=== PATIENT | male | born 1975 | race African-American/Black ===

== ENCOUNTER 2022-12-09 05:10 | Inpatient (IN) | payer MEDICAID ==
[2022-12-09] VITALS (24 sets, daily range): BP systolic 103–116; BP diastolic 62–76
[~2022-12-09] VITALS: Ht 170.2 cm; Wt 67.6 kg
[2022-12-09] MEDS ORDERED: PIPERACILLIN/TAZ 3.375G PREMIX 50 ML IV ONE (05:30)
[2022-12-09] MEDS ORDERED: SODIUM CHLORIDE 0.9% 1,000 ML IV ONE (05:30)
[2022-12-09] MEDS ORDERED: MIDAZOLAM HCL 2 MG/2 ML VIAL IV ONE (05:45)
[2022-12-09] MEDS ORDERED: MIDAZOLAM HCL 100 MG in DEXT 5% WATER 80 ML IV ONE (05:45)
[2022-12-09] MEDS ORDERED: VECURONIUM BROMIDE 10 MG/VIAL IV ONE ×2 (05:45→07:42)
[2022-12-09 06:08] LABS: BASOPHILS % 0.5 % (0.0-2.0); HEMATOCRIT. 46.6 % (42.0-52.0); HEMOGLOBIN. 15.2 g/dL (14.0-18.0); LYMPHOCYTES % 25.1 % (20.0-50.0); MEAN CORPUSCULAR HEMOGLOBIN 29.9 pg (28.0-32.0); MEAN CORPUSCULAR VOLUME 92.1 fL (80.0-94.0); MEAN PLATELET VOLUME 8.4 fl (7.4-10.4); MONOCYTES % 1.7 % (2.0-8.0); NEUTROPHILS % 71.7 % (40.0-76.0); PLATELET 303 x1000/uL (130-400); RED BLOOD CELL COUNT 5.07 mill/uL (4.7-6.1); RED CELL DISTRIBUTION WIDTH 13.6 % (11.6-14.6)
[2022-12-09 06:27] LABS: CHLORIDE 103 mEq/L (98-107)
[2022-12-09] MEDS ORDERED: MIDAZOLAM HCL 100 MG in DEXT 5% WATER 80 ML IV NR (06:30)
[2022-12-09 06:40] LABS: ETHANOL BLOOD < 10 mg/dL
[2022-12-09] MEDS ORDERED: DILTIAZEM HCL 125 MG in DEXT 5% WATER 100 ML IV ONE ×2 (06:45→07:00)
[2022-12-09] MEDS ORDERED: DILTIAZEM HCL 5MG/ML 5ML VIAL IV ONE (06:45)
[2022-12-09] MEDS ORDERED: CLINDAMYCIN 600 MG in DEXTROSE 5% WATER 50 ML IV ONE (06:45)
[2022-12-09] MEDS ORDERED: SODIUM CHLORIDE 0.9% 1000ML BAG (SEPSIS BOLUS) IV ONE (06:45)
[2022-12-09 06:46] LABS: BG BASE EXCESS -8.7 mmol/L (-2.0-2.0); BG CARBOXYHEMOGLOBIN 4.8 % (0.5-1.5); BG DEOXYHEMOGLOBIN 9.3 % (0.0-5.0); BG FRACTION INSPIRED OXYGEN 100; BG HCO3 ACT 22.6 mmol/L (22.0-26.0); BG METHEMOGLOBIN 0.3 % (0.0-1.5); BG OXYGEN SATURATION 90.2 % (92.0-98.5); BG OXYHEMOGLOBIN 85.6 % (94.0-97.0); BG PCO2 72.3 mmHg (35.0-45.0); BG PH 7.112 (7.350-7.450); BG PO2 71.7 mmHg (75.0-100.0); BG SAMPLE SITE RIGHT RADIAL; BG TOTAL HEMOGLOBIN 17.1 g/dL (12.0-18.0); BG VENT MODE VENT - AC
[2022-12-09 06:46] LABS: CREATINE KINASE 592 IU/L (39-308)
[2022-12-09] MEDS ORDERED: CLINDAMYCIN 600MG PREMIX 50 ML IV SCH (07:00)
[2022-12-09 07:09] LABS: CLARITY URINE CLEAR (CLEAR); COLOR URINE YELLOW (YELLOW); KETONES URINE NEGATIVE (NEGATIVE); LEUKOCYTE ESTERASE URINE NEGATIVE (NEGATIVE); NITRITE URINE NEGATIVE (NEGATIVE); OCCULT BLOOD URINE 2+ (NEGATIVE); PROTEIN URINE 3+ (NEGATIVE); SPECIFIC GRAVITY URINE 1.019 (1.005-1.030); UROBILINOGEN URINE 0.2 E.U./dL (0.2-1.0)
[2022-12-09] MEDS ORDERED: ETOMIDATE 2MG/ML 10ML VIAL IV ONE ×2 (07:30→07:42)
[2022-12-09] MEDS ORDERED: SUCCINYLCHOLINE CHLORIDE 200MG/10ML IV ONE ×2 (07:30→07:42)
[2022-12-09] MEDS ORDERED: SODIUM CHLORIDE 0.9% 10ML VIAL ONE (07:42)
[2022-12-09] MEDS ORDERED: LIDOCAINE HCL 1% 30ML VIAL (10MG/ML) ONE (07:50)
[2022-12-09 08:17] LABS: *AMPHETAMINES SCREEN URINE PRESUMTIVE POSITIVE (NEGATIVE); *BARBITURATES SCREEN URINE NEGATIVE (NEGATIVE); *BENZODIAZEPINES SCREEN URINE NEGATIVE (NEGATIVE); *COCAINE SCREEN URINE NEGATIVE (NEGATIVE); CANNABINOID URINE SCREEN PRESUMTIVE POSITIVE (NEGATIVE); METHADONE URINE SCREEN NEGATIVE (NEGATIVE); OPIATES URINE SCREEN NEGATIVE (NEGATIVE); PHENCYCLIDINE URINE SCREEN NEGATIVE (NEGATIVE)
[2022-12-09] MEDS ORDERED: DEXTROSE 50% WATER 50ML SYRINGE IV PRN (08:30)
[2022-12-09] MEDS ORDERED: ALBUTEROL (0.083%) 2.5MG/3ML NEB HHN PRN (08:30)
[2022-12-09 08:52] LABS: BG BASE EXCESS -7.8 mmol/L (-2.0-2.0); BG CARBOXYHEMOGLOBIN 2.4 % (0.5-1.5); BG DEOXYHEMOGLOBIN 5.9 % (0.0-5.0); BG FRACTION INSPIRED OXYGEN 100; BG HCO3 ACT 20.7 mmol/L (22.0-26.0); BG METHEMOGLOBIN 0.3 % (0.0-1.5); BG OXYGEN SATURATION 93.9 % (92.0-98.5); BG OXYHEMOGLOBIN 91.4 % (94.0-97.0); BG PCO2 53.5 mmHg (35.0-45.0); BG PH 7.206 (7.350-7.450); BG PO2 79.4 mmHg (75.0-100.0); BG SAMPLE SITE RIGHT BRACHIAL; BG TOTAL HEMOGLOBIN 16.1 g/dL (12.0-18.0); BG TOTAL RESPIRATORY RATE 24 b/min; BG VENT MODE VENT - AC
[2022-12-09] MEDS ORDERED: FAMOTIDINE 20MG/2ML VIAL IV SCH ×2 (09:00→10:00)
[2022-12-09] MEDS ORDERED: MAGNESIUM/ALUMINUM HYDROXIDE/SIMETHICONE 30ML UDC PO PRN (09:15)
[2022-12-09] MEDS ORDERED: KETOROLAC 15MG/ML VIAL IV PRN (09:15)
[2022-12-09] MEDS ORDERED: CLONIDINE 0.1MG TABLET PO PRN (09:15)
[2022-12-09] MEDS ORDERED: ONDANSETRON HCL 4MG/2ML INJ IV PRN (09:15)
[2022-12-09] MEDS ORDERED: NA PHOS,M-B/NA PHOS,DI-BA ENEMA 118ML PR PRN (09:15)
[2022-12-09] MEDS ORDERED: DOCUSATE SODIUM 100MG CAPSULE PO PRN (09:15)
[2022-12-09] MEDS ORDERED: VANCOMYCIN 1G PREMIX 200 ML IV SCH (09:30)
[2022-12-09] MEDS ORDERED: AMIODARONE HCL 150 MG in DEXT 5% WATER 100 ML IV SCH (09:30)
[2022-12-09] MEDS ORDERED: AMIODARONE HCL 900 MG in DEXT 5% WATER 482 ML IV SCH (09:30)
[2022-12-09 09:43] LABS: INR 1.1; PROTHROMBIN TIME 11.4 sec (9.6-11.0)
[2022-12-09] MEDS ORDERED: SODIUM CHLORIDE 0.9% 1,000 ML IV SCH ×2 (09:45→10:00)
[2022-12-09] MEDS ORDERED: ENOXAPARIN 40MG/0.4ML SYR SUBCUT SCH (10:00)
[2022-12-09] MEDS ORDERED: DOXYCYCLINE 100 MG in DEXT 5% WATER 100 ML IV SCH (10:00)
[2022-12-09] MEDS ORDERED: DEXT 5%/LACTATED RINGERS 1,000 ML IV SCH (10:00)
[2022-12-09] MEDS ORDERED: CEFTRIAXONE 1 G PREMIX 50 ML IV SCH (10:00)
[2022-12-09] MEDS: ENOXAPARIN 40MG/0.4ML SYR SUBCUT SCH (10:29)
[2022-12-09] MEDS: PANTOPRAZOLE SODIUM 40 MG/VIAL IV SCH (10:29)
[2022-12-09] MEDS: BLOOD SUGAR DIAGNOSTIC STRIP TEST SCH ×3 (10:29→17:13)
[2022-12-09] MEDS ORDERED: MIDAZOLAM HCL 100 MG in SODIUM CHLORIDE 0.9% 80 ML IV PRN (10:30)
[2022-12-09] MEDS ORDERED: INSULIN LISPRO 100 UNITS/ML SUBCUT SCH (12:00)
[2022-12-09 13:01] LABS: T4 FREE 0.94 ng/dL (0.76-1.46)
[2022-12-09 13:13] LABS: VITAMIN B12 SERUM 398 pg/mL (211-911)
[2022-12-09] MEDS ORDERED: PIPERACILLIN/TAZ 3.375G PREMIX 50 ML IV SCH (14:00)
[2022-12-09] MEDS ORDERED: MAGNESIUM 2 G PREMIX 50 ML IV NR (17:00)
[2022-12-09] MEDS: PIPERACILLIN/TAZOBACTAM 3.375 G in DEXTROSE 5% WATER 50 ML IV SCH ×2 (17:08→22:47)
[2022-12-09] MEDS: INSULIN LISPRO 100 UNITS/ML SUBCUT SCH (17:13)
[2022-12-09] MEDS: DEXT 5%/0.9% NACL 1,000 ML IV SCH (17:29)
[2022-12-09] MEDS ORDERED: VANCOMYCIN 1.25GM PMX (XELLIA) 250 ML IV SCH (20:00)
[2022-12-09] MEDS: VANCOMYCIN 1.25GM PMX (XELLIA) 250 ML IV SCH (20:56)
[2022-12-10] VITALS (35 sets, daily range): BP systolic 112–143; BP diastolic 72–97
[2022-12-10] MEDS: BLOOD SUGAR DIAGNOSTIC STRIP TEST SCH ×4 (00:34→17:54)
[2022-12-10] MEDS: DEXT 5%/0.9% NACL 1,000 ML IV SCH ×3 (04:21→17:54)
[2022-12-10] MEDS: INSULIN LISPRO 100 UNITS/ML SUBCUT SCH ×4 (06:00→17:54)
[2022-12-10 06:21] LABS: BASOPHILS % 0.2 % (0.0-2.0); EOSINOPHILS % 0.2 % (0.0-5.0); HEMATOCRIT. 39.8 % (42.0-52.0); HEMOGLOBIN. 13.6 g/dL (14.0-18.0); LYMPHOCYTES % 11.4 % (20.0-50.0); MEAN CORPUSCULAR HEMOGLOBIN 30.8 pg (28.0-32.0); MEAN CORPUSCULAR VOLUME 90.1 fL (80.0-94.0); MEAN PLATELET VOLUME 8.9 fl (7.4-10.4); MONOCYTES % 5.4 % (2.0-8.0); NEUTROPHILS % 82.8 % (40.0-76.0); PLATELET 181 x1000/uL (130-400); RED BLOOD CELL COUNT 4.42 mill/uL (4.7-6.1); RED CELL DISTRIBUTION WIDTH 13.4 % (11.6-14.6)
[2022-12-10] MEDS: PIPERACILLIN/TAZOBACTAM 3.375 G in DEXTROSE 5% WATER 50 ML IV SCH ×3 (06:22→22:20)
[2022-12-10 06:26] LABS: CHLORIDE 107 mEq/L (98-107)
[2022-12-10 06:35] LABS: PHOSPHORUS 2.3 mg/dL (2.5-4.9)
[2022-12-10] MEDS: ENOXAPARIN 40MG/0.4ML SYR SUBCUT SCH (08:42)
[2022-12-10] MEDS: ASPIRIN 81MG TABLET PO SCH (08:42)
[2022-12-10] MEDS: PANTOPRAZOLE SODIUM 40 MG/VIAL IV SCH (08:42)
[2022-12-10] MEDS: VANCOMYCIN 1.25GM PMX (XELLIA) 250 ML IV SCH ×2 (08:43→19:59)
[2022-12-10 09:02] LABS: BG BASE EXCESS -1.6 mmol/L (-2.0-2.0); BG CARBOXYHEMOGLOBIN 0.3 % (0.5-1.5); BG DEOXYHEMOGLOBIN 0.9 % (0.0-5.0); BG FRACTION INSPIRED OXYGEN 80; BG HCO3 ACT 23.7 mmol/L (22.0-26.0); BG METHEMOGLOBIN 0.3 % (0.0-1.5); BG OXYGEN SATURATION 99.1 % (92.0-98.5); BG OXYHEMOGLOBIN 98.5 % (94.0-97.0); BG PH 7.369 (7.350-7.450); BG PO2 222.2 mmHg (75.0-100.0); BG SAMPLE SITE RIGHT RADIAL; BG TOTAL HEMOGLOBIN 13.8 g/dL (12.0-18.0); BG VENT MODE VENT - AC
[2022-12-10 11:52] LABS: BG BASE EXCESS -3.8 mmol/L (-2.0-2.0); BG CARBOXYHEMOGLOBIN 0.6 % (0.5-1.5); BG DEOXYHEMOGLOBIN 5.9 % (0.0-5.0); BG FRACTION INSPIRED OXYGEN 40; BG HCO3 ACT 22.2 mmol/L (22.0-26.0); BG METHEMOGLOBIN 0.3 % (0.0-1.5); BG OXYHEMOGLOBIN 93.2 % (94.0-97.0); BG PCO2 43.8 mmHg (35.0-45.0); BG PH 7.323 (7.350-7.450); BG PO2 70.6 mmHg (75.0-100.0); BG SAMPLE SITE RIGHT BRACHIAL; BG VENT MODE VENT - CPAP
[2022-12-10] MEDS ORDERED: HALOPERIDOL LACTATE 5MG/ML VIAL IM NR (14:45)
[2022-12-10] MEDS ORDERED: HALOPERIDOL LACTATE 5MG/ML VIAL IM PRN (17:15)
[2022-12-10 17:21] LABS: BG BASE EXCESS 1.3 mmol/L (-2.0-2.0); BG CARBOXYHEMOGLOBIN 0.3 % (0.5-1.5); BG DEOXYHEMOGLOBIN 4.5 % (0.0-5.0); BG FRACTION INSPIRED OXYGEN 40; BG HCO3 ACT 25.9 mmol/L (22.0-26.0); BG METHEMOGLOBIN 0.3 % (0.0-1.5); BG OXYGEN SATURATION 95.5 % (92.0-98.5); BG OXYHEMOGLOBIN 94.9 % (94.0-97.0); BG PCO2 41.1 mmHg (35.0-45.0); BG PH 7.418 (7.350-7.450); BG PO2 73.9 mmHg (75.0-100.0); BG SAMPLE SITE RIGHT RADIAL; BG TOTAL HEMOGLOBIN 14.3 g/dL (12.0-18.0); BG VENT MODE NASAL CANNULA
[2022-12-11] VITALS (28 sets, daily range): BP systolic 97–142; BP diastolic 45–97
[2022-12-11] MEDS ORDERED: ACETAMINOPHEN 325MG TABLET PO PRN ×2 (00:30→01:00)
[2022-12-11] MEDS: KETOROLAC 15MG/ML VIAL IV PRN ×2 (03:59→20:50)
[2022-12-11] MEDS: DEXT 5%/0.9% NACL 1,000 ML IV SCH ×2 (04:04→19:30)
[2022-12-11] MEDS: BLOOD SUGAR DIAGNOSTIC STRIP TEST SCH ×5 (05:34→22:04)
[2022-12-11] MEDS: PIPERACILLIN/TAZOBACTAM 3.375 G in DEXTROSE 5% WATER 50 ML IV SCH ×3 (05:39→22:00)
[2022-12-11] MEDS: INSULIN LISPRO 100 UNITS/ML SUBCUT SCH ×5 (05:41→22:04)
[2022-12-11] MEDS: GUAIFENESIN 200MG/10ML SUGAR FREE UDC PO PRN (06:06)
[2022-12-11 06:26] LABS: CHLORIDE 110 mEq/L (98-107)
[2022-12-11 07:45] LABS: BG BASE EXCESS -1.3 mmol/L (-2.0-2.0); BG CARBOXYHEMOGLOBIN 0.7 % (0.5-1.5); BG DEOXYHEMOGLOBIN 4.4 % (0.0-5.0); BG FRACTION INSPIRED OXYGEN 32; BG METHEMOGLOBIN 0.2 % (0.0-1.5); BG OXYGEN SATURATION 95.6 % (92.0-98.5); BG OXYHEMOGLOBIN 94.7 % (94.0-97.0); BG PCO2 37.3 mmHg (35.0-45.0); BG PH 7.407 (7.350-7.450); BG PO2 73.2 mmHg (75.0-100.0); BG SAMPLE SITE RIGHT BRACHIAL; BG TOTAL HEMOGLOBIN 13.5 g/dL (12.0-18.0); BG VENT MODE NASAL CANNULA
[2022-12-11] MEDS: PANTOPRAZOLE SODIUM 40 MG/VIAL IV SCH (08:22)
[2022-12-11] MEDS: ENOXAPARIN 40MG/0.4ML SYR SUBCUT SCH (08:22)
[2022-12-11] MEDS: ASPIRIN 81MG TABLET PO SCH (08:22)
[2022-12-11] MEDS: VANCOMYCIN 1.25GM PMX (XELLIA) 250 ML IV SCH (08:23)
[2022-12-11 09:06] LABS: BASOPHILS % 0.2 % (0.0-2.0); EOSINOPHILS % 0.5 % (0.0-5.0); HEMATOCRIT. 39.8 % (42.0-52.0); HEMOGLOBIN. 13.3 g/dL (14.0-18.0); MEAN CORPUSCULAR HEMOGLOBIN 30.3 pg (28.0-32.0); MEAN CORPUSCULAR VOLUME 90.6 fL (80.0-94.0); MEAN PLATELET VOLUME 9.5 fl (7.4-10.4); MONOCYTES % 6.9 % (2.0-8.0); NEUTROPHILS % 82.4 % (40.0-76.0); PLATELET 177 x1000/uL (130-400); RED BLOOD CELL COUNT 4.39 mill/uL (4.7-6.1); RED CELL DISTRIBUTION WIDTH 13.4 % (11.6-14.6)
[2022-12-11] MEDS: VANCOMYCIN 1G PREMIX 200 ML IV SCH ×2 (16:32→21:22)
[2022-12-12] VITALS: BP 138/62
[2022-12-12 04:00] VITALS: BP 134/72
[2022-12-12] MEDS: VANCOMYCIN 1G PREMIX 200 ML IV SCH ×3 (05:22→22:00)
[2022-12-12] MEDS: DEXT 5%/0.9% NACL 1,000 ML IV SCH ×2 (05:29→15:54)
[2022-12-12] MEDS: INSULIN LISPRO 100 UNITS/ML SUBCUT SCH ×3 (06:00→18:00)
[2022-12-12] MEDS: BLOOD SUGAR DIAGNOSTIC STRIP TEST SCH ×3 (06:00→18:00)
[2022-12-12 08:00] VITALS: BP 111/62
[2022-12-12] MEDS: ASPIRIN 81MG TABLET PO SCH (08:46)
[2022-12-12] MEDS: PIPERACILLIN/TAZOBACTAM 3.375 G in DEXTROSE 5% WATER 50 ML IV SCH ×3 (08:46→23:00)
[2022-12-12] MEDS: PANTOPRAZOLE SODIUM 40 MG/VIAL IV SCH (08:46)
[2022-12-12] MEDS: ENOXAPARIN 40MG/0.4ML SYR SUBCUT SCH (08:47)
[2022-12-12] MEDS: KETOROLAC 15MG/ML VIAL IV PRN (09:04)
[2022-12-12] MEDS: GUAIFENESIN 200MG/10ML SUGAR FREE UDC PO PRN (09:04)
[2022-12-12 11:57] LABS: CHLORIDE 109 mEq/L (98-107)
[2022-12-12 12:00] VITALS: BP 101/56
[2022-12-12 16:00] VITALS: BP 112/62
[2022-12-13] MEDS ORDERED: MELATONIN 3MG TABLET PO PRN (00:30)
[2022-12-13] MEDS ORDERED: KETOROLAC 15MG/ML VIAL IV PRN (00:30)
[2022-12-13] MEDS: INSULIN LISPRO 100 UNITS/ML SUBCUT SCH ×2 (00:58→05:30)
[2022-12-13] MEDS: BLOOD SUGAR DIAGNOSTIC STRIP TEST SCH ×2 (00:59→05:29)
[2022-12-13] MEDS: DEXT 5%/0.9% NACL 1,000 ML IV SCH (01:03)
[2022-12-13 04:00] VITALS: BP 126/79
[2022-12-13] MEDS: VANCOMYCIN 1G PREMIX 200 ML IV SCH (04:03)
[2022-12-13] MEDS: PIPERACILLIN/TAZOBACTAM 3.375 G in DEXTROSE 5% WATER 50 ML IV SCH (05:29)
[2022-12-13 08:00] VITALS: BP 125/83
[2022-12-13] MEDS ORDERED: FAMOTIDINE 20MG/2ML VIAL IV SCH (09:00)
[2022-12-13] MEDS: ENOXAPARIN 40MG/0.4ML SYR SUBCUT SCH (09:43)
[2022-12-13] MEDS: ASPIRIN 81MG TABLET PO SCH (09:43)
[2022-12-13 11:22] VITALS: BP 125/83
== END 2022-12-13 12:34 | disposition home or self-care (01) | DRG 720 ==
LOC: ER 05:10 → MICUSO 06:50 → EDBD 06:50 → CVICU 14:08 → 6EST 12-11 18:36
PROVIDERS: ADMIT Internal Medicine; ATTEND Internal Medicine
PROC: 5A1945Z Respiratory Ventilation, 24-96 Consecutive Hours (ICD-10-PCS; principal; 2022-12-09)
PROC: 0BH17EZ Insertion of Endotracheal Airway into Trachea, Via Natural or Artificial Opening (ICD-10-PCS; 2022-12-09)
PROC: 02HV33Z Insertion of Infusion Device into Superior Vena Cava, Percutaneous Approach (ICD-10-PCS; 2022-12-09)
PROC: B548ZZA Ultrasonography of Superior Vena Cava, Guidance (ICD-10-PCS; 2022-12-09)
DX: A41.9 Sepsis, unspecified organism (principal); J69.0 Pneumonitis due to inhalation of food and vomit; R65.21 Severe sepsis with septic shock; J96.01 Acute respiratory failure with hypoxia; J96.02 Acute respiratory failure with hypercapnia; T50.991A Poisoning by other drugs, medicaments and biological substances, accidental (unintentional), initial encounter; I21.4 Non-ST elevation (NSTEMI) myocardial infarction; E87.4 Mixed disorder of acid-base balance; Z20.822 Contact with and (suspected) exposure to COVID-19; E05.90 Thyrotoxicosis, unspecified without thyrotoxic crisis or storm; I48.0 Paroxysmal atrial fibrillation; F19.10 Other psychoactive substance abuse, uncomplicated; R74.01 Elevation of levels of liver transaminase levels; Y92.89 Other specified places as the place of occurrence of the external cause
CPT/HCPCS: 31500; 36415; 36573; 36600; 71045; 80048; 80053; 80061; 80202; 80305; 80307; 80320; 80329; 81003; 82375; 82550; 82607; 82805; 82962; 83036; 83540; 83550; 83605; 83735; 83880; 84100; 84145; 84439; 84443; 84484; 85025; 87070; 87426; 93005; 93306; 93970; 94002; 94003; 97162; 97166; 99291; C1725; C9113; C9803; J0282; J0330; J1630; J1650; J1815; J1885; J2250; J2543; J3370; J3475; J3490; J7030; J7042; J7050; J7060; A4315; G0480